=== PATIENT | male | born 1985 | race Caucasian/White ===

== ENCOUNTER → 2018-06-24 | Outpatient (REF) ==
[~2018-06-24] MED LIST: DARVOCET-N-101 UDTAB PO; GENTAMICIN EYE D5 ML OP; NO HOME MEDICATIONS
[2018-06-24 16:55] LABS: THYROID STIMULATING HORMONE 3.56 uIU/mL (0.465-4.680)
== END ==
LOC: ZLAB.WCH 16:14
PROVIDERS: Physician Assistant
DX: Z01.89 Encounter for other specified special examinations (principal)

== ENCOUNTER → 2020-08-01 | Outpatient (REF) ==
[2020-08-01 17:05] LABS: CLOSTRIDIUM DIFF A/B NEG; CLOSTRIDIUM DIFF A/B INTERP NonToxigenic C.diff
== END ==
LOC: ZLAB.WCH 10:00
PROVIDERS: Nurse Practitioner Family
DX: Z01.89 Encounter for other specified special examinations (principal)